=== PATIENT | male | born 1960 | race Caucasian/White ===

== ENCOUNTER 2017-11-21 10:10 | Emergency (ER) | payer OTHER ==
[2017-11-21] MEDS: ONDANSETRON 4 MG INJ IV (10:30)
[2017-11-21] MEDS: FAMOTIDINE 20 MG INJ IV (10:30)
[2017-11-21] MEDS: SOD CHLORIDE 0.9% 1,000 ML IV (10:30)
[2017-11-21] MEDS: HYDROmorphONE 1 MG/5 ML IV SYRINGE IV (10:30)
[2017-11-21 11:03] LABS: ADD MAN DIFF? NO
[2017-11-21 11:11] LABS: WHITE BLOOD COUNT 4.1 10^3/ul (4.8-10.8)
[2017-11-21 11:11] LABS: ABNORMAL IP MESSAGE 1; BASOPHILS % 0.7 % (0.0-2.0); HEMATOCRIT 34.2 % (42.0-52.0); HEMOGLOBIN 12.2 g/dl (14.0-18.0); LYMPHOCYTES # 0.4 10^3/ul (0.8-2.9); LYMPHOCYTES % 8.7 % (15.0-51.0); MEAN CORPUSCULAR HEMOGLOBIN 30.5 pg (29.0-33.0); MEAN CORPUSCULAR HGB CONC 35.7 g/dl (32.0-37.0); MEAN CORPUSCULAR VOLUME 85.5 fl (82.0-101.0); MEAN PLATELET VOLUME 9.9 fl (7.4-10.4); MONOCYTE # 0.2 10^3/ul (0.3-0.9); MONOCYTES % 3.9 % (0.0-11.0); NEUTROPHIL # 3.5 10^3/ul (1.6-7.5); PLATELET COUNT 124 10^3/UL (140-415); POSITIVE DIFF @See below; RED CELL DISTRIBUTION WIDTH 14.4 % (11.5-14.5)
[2017-11-21 11:29] LABS: ALANINE AMINOTRANSFERASE 92 IU/L (13-69); ALBUMIN 3.9 g/dl (3.3-4.9); ALBUMIN/GLOBULIN RATIO 1.14; ALKALINE PHOSPHATASE 154 IU/L (42-121); ANION GAP 22 (8-16); ASPARTATE AMINO TRANSFERASE 96 IU/L (15-46); BLOOD UREA NITROGEN 25 mg/dl (7-20); CALCIUM 8.8 mg/dl (8.4-10.2); CARBON DIOXIDE 21 mmol/L (21-31); CHLORIDE 85 mmol/L (97-110); CREATININE 1.92 mg/dl (0.61-1.24); GLUCOSE 326 mg/dl (70-220); LIPASE 306 U/L (23-300); POTASSIUM 4.2 mmol/L (3.5-5.1); SODIUM 124 mmol/L (135-144); TOTAL PROTEIN 7.3 g/dl (6.1-8.1)
[2017-11-21] MEDS: ACETAMINOPHEN 325 MG TAB PO (16:39)
[2017-11-21] MEDS: PIPER-TAZO 3.375 GM IV (PMX) 100 ML IVPB (16:40)
== END 2017-11-21 17:22 | disposition short-term general hospital (02) ==
LOC: E/R 17:22
DX: E87.1 Hypo-osmolality and hyponatremia (principal); K56.7 Ileus, unspecified; K56.600 Partial intestinal obstruction, unspecified as to cause; E11.9 Type 2 diabetes mellitus without complications; Z79.84 Long term (current) use of oral hypoglycemic drugs
CPT/HCPCS: 36415; 74176; 80053; 83690; 85025; 96374; 96375; 99285-25

== ENCOUNTER 2017-12-14 14:14 | Emergency (ER) | payer OTHER ==
[2017-12-14] MEDS: SOD CHLORIDE 0.9% 500 ML IV (15:00)
[2017-12-14] MEDS: MECLIZINE 12.5 MG TAB PO (15:03)
[2017-12-14 15:04] LABS: URINE BLOOD (Dip) POC Trace-lysed (NEGATIVE); URINE KETONES (Dip) POC Negative (NEGATIVE); URINE LEUKOCYTE EST (Dip) POC Negative (NEGATIVE); URINE NITRITE (Dip) POC Negative (NEGATIVE); URINE TOTAL PROTEIN POC 2+ (NEGATIVE)
[2017-12-14 15:11] LABS: ADD MAN DIFF? NO
[2017-12-14 15:17] LABS: WHITE BLOOD COUNT 9.3 10^3/ul (4.8-10.8)
[2017-12-14 15:17] LABS: BASOPHIL # 0.2 10^3/ul (0.0-0.1); BASOPHILS % 1.7 % (0.0-2.0); EOSINOPHILS # 0.4 10^3/ul (0.0-0.5); HEMATOCRIT 24.9 % (42.0-52.0); HEMOGLOBIN 7.9 g/dl (14.0-18.0); LYMPHOCYTES # 1.6 10^3/ul (0.8-2.9); LYMPHOCYTES % 17.3 % (15.0-51.0); MEAN CORPUSCULAR HEMOGLOBIN 30.5 pg (29.0-33.0); MEAN CORPUSCULAR HGB CONC 31.7 g/dl (32.0-37.0); MEAN CORPUSCULAR VOLUME 96.1 fl (82.0-101.0); MEAN PLATELET VOLUME 8.4 fl (7.4-10.4); MONOCYTE # 0.6 10^3/ul (0.3-0.9); MONOCYTES % 6.5 % (0.0-11.0); NEUTROPHIL # 6.4 10^3/ul (1.6-7.5); NEUTROPHILS % 69.3 % (39.0-77.0); RED BLOOD COUNT 2.59 10^6/ul (4.70-6.10); RED CELL DISTRIBUTION WIDTH 15.5 % (11.5-14.5)
[2017-12-14 15:45] LABS: ALANINE AMINOTRANSFERASE 33 IU/L (13-69); ALBUMIN 3.4 g/dl (3.3-4.9); ALBUMIN/GLOBULIN RATIO 1.09; ALKALINE PHOSPHATASE 136 IU/L (42-121); ANION GAP 15 (8-16); ASPARTATE AMINO TRANSFERASE 42 IU/L (15-46); BILIRUBIN,INDIRECT 0.1 mg/dl (0-1.1); BILIRUBIN,TOTAL 0.1 mg/dl (0.2-1.3); BLOOD UREA NITROGEN 31 mg/dl (7-20); CALCIUM 9.6 mg/dl (8.4-10.2); CARBON DIOXIDE 21 mmol/L (21-31); CHLORIDE 114 mmol/L (97-110); CREATININE 3.44 mg/dl (0.61-1.24); GLUCOSE 78 mg/dl (70-220); SODIUM 143 mmol/L (135-144); TOTAL PROTEIN 6.5 g/dl (6.1-8.1)
[2017-12-14 15:51] LABS: POTASSIUM 6.7 mmol/L (3.5-5.1)
[2017-12-14 16:03] LABS: TROPONIN-I < 0.012 ng/ml (0.000-0.120)
[2017-12-14] MEDS: SOD CHLORIDE 0.9% 1,000 ML IV (16:09)
[2017-12-14 16:16] LABS: PLATELET COUNT 828 10^3/UL (140-415)
[2017-12-14] MEDS: NA POLYST SULFON 15 GM/60 ML BTL PO (16:20)
[2017-12-14] MEDS: DEXTROSE 50% 50 ML SYRINGE IV (16:20)
[2017-12-14] MEDS: NA BICARBONATE 8.4% 50 ML SYG IV (16:20)
[2017-12-14] MEDS: INSULIN REGULAR, HUMAN 100 UNIT/1 ML 3ML VIAL IVP (16:22)
[2017-12-14] MEDS: ALBUTEROL 0.083% (NEB) 2.5 MG/3 ML AMP HHN (16:23)
[2017-12-14] MEDS ORDERED: DEXTROSE 50% 50 ML SYRINGE IV (16:30)
[2017-12-14] MEDS: CALCIUM GLUCONATE 10% 1 GM in DEXTROSE 5% 100 ML IVPB (16:40)
[2017-12-14 16:44] LABS: ETHANOL < 10.0 mg/dl
[2017-12-14 18:18] LABS: POTASSIUM 4.8 mmol/L (3.5-5.1)
[2017-12-14 18:22] LABS: LACTIC ACID 2.1 mmol/L (0.5-2.0)
== END 2017-12-14 21:31 | disposition short-term general hospital (02) ==
LOC: FTE 14:14 → E/R 21:31
DX: N17.9 Acute kidney failure, unspecified (principal); E87.5 Hyperkalemia; D64.9 Anemia, unspecified; D47.3 Essential (hemorrhagic) thrombocythemia; D72.825 Bandemia; E11.9 Type 2 diabetes mellitus without complications; Z79.84 Long term (current) use of oral hypoglycemic drugs
CPT/HCPCS: 70450; 71045; 80053; 80307; 81003; 82962; 83605; 84132; 84484; 85025; 86850; 86900; 86901; 87040; 94664; 96374; 96375; 99285-25